=== PATIENT | female | born 1945 | race Caucasian/White ===

== ENCOUNTER → 2016-12-08 | Outpatient (CLI) | payer MEDICARE, BC ==
--- NOTE | 2016-12-08 11:48 | MM ---
Reason for exam: screening (asymptomatic). Last mammogram was performed 2 years and 3 months ago. History: Patient is postmenopausal. Physical Findings: A clinical breast exam by your physician is recommended on an annual basis and results should be correlated with mammographic findings. MG Screening Mammo w CAD Bilateral CC, MLO, and XCCL view(s) were taken. Prior study comparison: September 06, 2014, mammogram. January 07, 2011, mammogram. There are scattered fibroglandular densities. Finding #1: There is a 5 mm round mass in the upper inner quadrant, middle, central position of the right breast. Finding #2: There are few typically benign round, diffuse/scattered calcifications in both breasts. New finding since September 06, 2014. ASSESSMENT: Incomplete: need additional imaging evaluation, BI-RAD 0 RECOMMENDATION: Special view mammogram and ultrasound of the right breast. [facility] will attempt to contact patient to return for supplemental views and ultrasound.
== END | disposition home or self-care (01) ==
LOC: RADMAMWWP 09:32
PROVIDERS: ATTEND Family Medicine
DX: Z12.31 Encounter for screening mammogram for malignant neoplasm of breast (principal)

== ENCOUNTER → 2017-01-06 | Outpatient (CLI) | payer MEDICARE, BC ==
--- NOTE | 2017-01-06 08:36 | MM ---
Reason for exam: additional evaluation requested from abnormal screening. Last mammogram was performed 1 month ago. History: Patient is postmenopausal. Physical Findings: Nurse did not find any significant physical abnormalities on exam. MG 3D Work Up W/Cad RT LM view(s) were taken of the right breast. Prior study comparison: December 08, 2016, bilateral MG screening mammo w CAD. September 06, 2014, mammogram. There are scattered fibroglandular densities. Retrospectively the mass in the central inner right breast appears unchanged from 2010. These results were verbally communicated with the patient and result sheet given to the patient on 01/06/17. ASSESSMENT: Benign, BI-RAD 2 RECOMMENDATION: Return to routine screening mammogram schedule for both breasts.
== END | disposition home or self-care (01) ==
LOC: RADMAMWWP 07:30
PROVIDERS: ATTEND Family Medicine
DX: R92.8 Other abnormal and inconclusive findings on diagnostic imaging of breast (principal)
CPT/HCPCS: G0206; G0279

== ENCOUNTER → 2017-02-15 | Outpatient (CLI) | payer MEDICARE, BC ==
--- NOTE | 2017-02-15 09:50 | MR ---
EXAMINATION TYPE: MR angio head wo con DATE OF EXAM: 02/15/2017 COMPARISON: 07/19/2015 HISTORY: Dizziness, Memory loss, High blood pressure TECHNIQUE: Utilizing 3-D [id number] intracranial MRA of the [place] was performed. FINDINGS: The vertebrobasilar and carotid systems are patent. There is no sizable aneurysm or vascular malform ation. Posterior cerebral artery in the right originates from the anterior circulation. IMPRESSION: 1. No evidence of vascular malformation or sizable aneurysm.
--- NOTE | 2017-02-15 09:56 | MR ---
EXAMINATION TYPE: MR brain wo con DATE OF EXAM: 02/15/2017 COMPARISON: 07/11/2015 HISTORY: Dizziness, Memory loss, High blood pressure T1-weighted sagittal, T2, FLAIR, and diffusion axial, and T2 coronal coronal views of the brain are s ubmitted. There is no evidence of acute ischemia. There is moderate generalized degenerative change. There are numerous areas of abnormal signal throughout the white matter bilaterally in a nonspecific pattern appear to be stable in size and number. All measure less than 5 mm. Findings are nonspecific but most typical remote microvascular ischemia. Exam is performed noncontrast of the tubular area enhancement involving the left temporal lobe cannot be assessed relative to the previous exam. Nasal septal deviation noted. Changes of mild chronic sinusitis. Abnormal signal in the [place] is stable suggestive of areas of tiny remote ischemia. There is no mass e ffect. Craniocervical junction maintained. Sella turcica has a normal appearance. No cerebellopontine angle mass. IMPRESSION: 1. No acute intracranial process. 2. Degenerative and nonspecific white matter changes most typical remote microvascular ischemia.
== END | disposition home or self-care (01) ==
LOC: RADMRIMAIN 08:22
PROVIDERS: ATTEND Family Medicine
DX: R90.89 Other abnormal findings on diagnostic imaging of central nervous system (principal); H91.23 Sudden idiopathic hearing loss, bilateral
CPT/HCPCS: 70544; 70551

== ENCOUNTER → 2019-09-21 | Day surgery (SDC) | payer BC, MEDICARE ==
[2019-09-05 12:17] VITALS: BMI 42.1
[~2019-09-21] MED LIST: GLUCAGON 1 MG/ML VIAL ONE; LACTATED RINGERS 1,000 ML IV SCH; LIDOCAINE 1% (10MG/ML) FOR IV START INTRADERMA ONE; LIDOCAINE 1% INJ 10MG/ML (20 ML MDV) ONE; MIDAZOLAM 2 MG/2 ML VIAL ONE; PROPOFOL 10 MG/ML 20 ML VIAL IV ONE; fentaNYL (PF) 50 MCG/ML 2 ML AMP ONE
[2019-09-21 08:33] VITALS: RESP 16; TEMP 97
[2019-09-21 08:33] LABS: Glucose,Whole Blood 182 mg/dL (75-99)
--- NOTE | 2019-09-21 09:05 | P.GSHP ---
History of Present Illness H&P Date: 09/21/19 Chief Complaint: GERD, screening colonoscopy This a 73-year-old female presents today for EGD and screening colonoscopy. Patient denies a significant GI complaints. She's had complaints of GERD. Past Medical History Past Medical History: Diabetes Mellitus, GERD/Reflux, Hyperlipidemia, Hypertension History of Any Multi-Drug Resistant Organisms: None Reported Past Surgical History: Bladder Surgery, Heart Catheterization, Tubal Ligation Additional Past Surgical History / Comment(s): Colonoscopy, upper scope, cataract surgery. Past Anesthesia/Blood Transfusion Reactions: No Reported Reaction Past Psychological History: No Psychological Hx Reported Smoking Status: Never smoker Past Alcohol Use History: None Reported Past Drug Use History: None Reported - Past Family History Sister(s) Family Medical History: Cancer Medications and Allergies Home Medications Medication Instructions Recorded Confirmed Type INSULIN LISPRO (humaLOG) [HumaLOG] 0 units SQ AC-TID PRN 01/18/15 09/21/19 History Insulin Glargine,Hum.rec.anlog 40 unit SQ HS 01/18/15 09/21/19 History [Lantus Solostar] Meloxicam [Mobic] 15 mg PO DAILY 01/18/15 09/21/19 History Rosuvastatin Calcium [Crestor] 10 mg PO DAILY 01/18/15 09/21/19 History Triamterene-Hctz 37.5-25Mg 1 cap PO DAILY 01/18/15 09/21/19 History [Dyazide 37.5-25 Capsule] lisinopriL [Lisinopril] 40 mg PO HS 01/18/15 09/21/19 History Clopidogrel Bisulfate [Plavix] 75 mg PO DAILY 09/05/19 09/21/19 History DULoxetine HCL [Cymbalta] 30 mg PO DAILY 09/05/19 09/21/19 History Famotidine [Pepcid] 40 mg PO DAILY 09/05/19 09/21/19 History Famotidine [Pepcid] 10 mg PO 09/21/19 History Allergies Allergy/AdvReac Type Severity Reaction Status Date / Time No Known Allergies Allergy Verified 09/21/19 08:19 Surgical - Exam Vital Signs Temp Pulse Resp BP Pulse Ox 97.0 F L 73 16 199/80 96 09/21/19 08:32 09/21/19 08:32 09/21/19 08:32 09/21/19 08:32 09/21/19 08:32 - General well developed, well nourished, no distress - Eyes PERRL - ENT normal pinna - Neck no masses - Respiratory normal expansion - Cardiovascular Rhythm: regular - Abdomen Abdomen: soft, non tender Results - Labs Abnormal Lab Results - Last 24 Hours (Table) 09/21/19 Range/Units 08:30 POC Glucose (mg/dL) 182 H (75-99) mg/dL Assessment and Plan Assessment: GERD. We'll perform EGD. We'll perform screening colonoscopy.
--- NOTE | 2019-09-21 09:39 | P.OP ---
Date of Procedure: 09/21/19 Preoperative Diagnosis: GERD Screening colonoscopy Postoperative Diagnosis: Antral ulcer Diverticulosis Tortuous colon Description of Procedure: The patient's placed on the endoscopy table in the lateral position. She received IV sedation. The gastro-/oropharynx and passed in the esophagus and stomach. Scope was then placed through the pylorus. The first and second portion of the duodenum appeared normal. Scope was then brought back and the antrum this appeared inflamed. A biopsies performed. It was suspicious for a healing ulcer. Scope was then brought back admitted some appeared normal. The GE junction was at 40 cm. There is no evidence of hiatal hernia. The distal esophagus appeared normal. The proximal esophagus appeared normal. Scope was then brought back the patient in withdrawn. Next, digital rectal exam was performed which revealed no abnormalities. Flexible colonoscope was then placed patient anus passed throughout the colon. The colon was very tortuous. The scope could not be placed in the cecum secondary to tortuosity the valve. Several times made to enter the cecum was impossible. Glucagon was also given. Approximately 15 this operative time used to try to enter the cecum however this wasn't possible the scope was then brought back the hepatic flexure was seen. The transverse colon appeared normal. In the descending; there is moderate diverticular changes. There is no evidence of diverticulitis. The scope was then brought back the rectum and this appeared normal. Scope withdrawn for patient.
[2019-09-21 09:44] LABS: Glucose,Whole Blood 217 mg/dL (75-99)
[2019-09-21 09:55] VITALS: BP 178/76; PULSE 50
== END ==
LOC: ORWHC2ENDO 07:53
PROVIDERS: ATTEND Surgery
DX: Z12.11 Encounter for screening for malignant neoplasm of colon (principal); K57.30 Diverticulosis of large intestine without perforation or abscess without bleeding; Q43.8 Other specified congenital malformations of intestine; K29.50 Unspecified chronic gastritis without bleeding; K21.9 Gastro-esophageal reflux disease without esophagitis; E11.9 Type 2 diabetes mellitus without complications; E78.5 Hyperlipidemia, unspecified; I10 Essential (primary) hypertension; Z98.51 Tubal ligation status; Z98.49 Cataract extraction status, unspecified eye; Z98.890 Other specified postprocedural states; Z80.9 Family history of malignant neoplasm, unspecified; Z79.1 Long term (current) use of non-steroidal anti-inflammatories (NSAID); Z79.02 Long term (current) use of antithrombotics/antiplatelets; Z79.4 Long term (current) use of insulin; Z79.899 Other long term (current) drug therapy
CPT/HCPCS: 88305; 43239; J2250; J1610; J2001; J3010; J2704; G0121

== ENCOUNTER → 2023-08-03 | Outpatient (CLI) | payer MEDICARE ==
--- NOTE | 2023-08-03 11:10 | CA ---
Lexiscan Nuclear Stress Test Report Name: Antionette Crenshaw Exam Date: 08/03/2023 09:52 Exam Location: [facility] Ht (in): 61 Wt (lb): 218 BSA: 1.96 Ordering Phys: Viridiana Cage DO Referring Phys: Viridiana Cage DO Technologist: Elissa De Jesus RDCS Age: 77 Gender: F : 1945 Procedure CPT: abnormal ekg Indications: I10 HTN ICD-10 Codes: Patient History: Medications: Meds past 24 hrs: Pretest Chest Pain: STRESS TEST Lexiscan Protocol Exercise Duration (min:sec): 01:[address] Depressions (mm): Angina Score: Huertas Score: Resting HR (bpm): 61 Peak HR (bpm): 83 Resting BP (mmHg): 216 / 71 Peak BP (mmHg): / 49 MPHR: 142 Target HR: 121 % MPHR: 58 METS: 1.0 Total Dose: Peak Dose: Atropine: Double Product: BP Response: Stress Termination: PROTOCOL COMPLETE Stress Symptoms: DRY THROAT Stress Summary: ECG ANALYSIS Resting ECG: Normal sinus rhythm with nonspecific ST-T wave changes Stress ECG: Patient was given intravenous Lexiscan as a protocol did not have chest pain or diagnostic ST segment depression CONCLUSIONS Inconclusive EKG part of the stress test due to baseline EKG abnormalities Cardiolite portion of the stress test will be reported separately Dr. Lalo Leonardo MD (Electronically Signed) Final Date: 03 August 2023 11:09
--- NOTE | 2023-08-03 14:31 | NM ---
EXAMINATION TYPE: NM stress lexiscan cardiolite DATE OF EXAM: 08/03/2023 COMPARISON: NONE CLINICAL INDICATION: Female, 77 years old with history of I10 HTN; TECHNIQUE: After the intravenous administration of 9.7 mCi Tc 99m Sestamibi - Cardiolite resting SPE CT images acquired 45 minutes post injection. The patient received 0.4mg Lexiscan, 26.0 mCi Tc 99m Sestamibi - Stress images obtained [address] injection FINDINGS: Review of stress and rest SPECT images demonstrates a small fixed defect along the anteroseptal wall, slightly more pronounced on rest suggesting attenuation artifact. No distinct reversibility is seen. Gated analysis shows normal wall motion with an estimated left ventricular ejection fraction of 54 %. TID is upper limits of normal at 1.16. 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 Clinically correlat e. Estimated LVEF borderline at 54%. No scintigraphic evidence for reversible ischemia.
== END | disposition home or self-care (01) ==
LOC: RADNMMAIN 07:51
PROVIDERS: ATTEND Family Medicine
DX: I25.10 Atherosclerotic heart disease of native coronary artery without angina pectoris (principal); R94.31 Abnormal electrocardiogram [ECG] [EKG]; I10 Essential (primary) hypertension
CPT/HCPCS: 93017; 78452; A9500